=== PATIENT | female | born 1995 | race African-American/Black ===

== ENCOUNTER 2022-05-11 16:16 | Emergency (ER) | payer OTHER ==
[~2022-05-11] VITALS: Ht 167.6 cm; Wt 59.0 kg
--- NOTE | 2022-05-11 17:15 | NUR ---
assume patient care, here for heart palpitation, headache w/ r sided weakness that started at around 1530. noted slight r sided facial droop noted. no slurring of speech. gowned and placed on monitor. vss.
[2022-05-11 17:18] LABS: BASOPHILS % (AUTO) 0.5 % (0.0-2.0); EOSINOPHILS % (AUTO) 2.8 % (0.0-6.0); HEMATOCRIT 37 % (33-45); HEMOGLOBIN 12.5 g/dL (11.5-14.8); LYMPHOCYTES # (AUTO) 2.1 K/uL (0.8-4.8); LYMPHOCYTES % (AUTO) 32.9 % (20.0-44.0); MEAN CORPUSCULAR HGB CONC 34 g/dl (31.0-36.0); MEAN CORPUSCULAR VOLUME 86 fL (82-100); MONOCYTES # (AUTO) 0.6 K/uL (0.1-1.30); MONOCYTES % (AUTO) 8.8 % (2.0-12.0); NEUTROPHILS # (AUTO) 3.5 K/uL (1.8-8.9); PLATELET COUNT (AUTO) 301 K/uL (150-450); RED BLOOD CELL COUNT(AUTO) 4.24 MIL/uL (4.0-5.2); WHITE BLOOD COUNT (AUTO) 6.4 K/uL (4.3-11.0)
--- NOTE | 2022-05-11 17:28 | NUR ---
CODE STROKE CALLED
--- NOTE | 2022-05-11 17:30 | NUR ---
PT TO CT VIA [employer].
[2022-05-11] MEDS ORDERED: IOHEXOL-350 100 ML VIAL IV ONE (17:31)
--- NOTE | 2022-05-11 17:35 | NUR ---
CALLED [facility] [phone] CHAVEZ
[2022-05-11 18:58] LABS: CARBON DIOXIDE 27 mmol/L (21-32); CHLORIDE 105 mmol/L (98-107); CREATININE 0.8 mg/dL (0.6-1.3); GLUCOSE 87 mg/dL (74-106); POTASSIUM 3.6 mmol/L (3.5-5.1); SODIUM SERUM 140 mmol/L (136-145); UREA NITROGEN, BLOOD 7 mg/dL (7-18)
[2022-05-11] MEDS ORDERED: PROCHLORPERAZINE EDISYLATE 10 MG/2 ML VIAL IVP ONE (19:00)
[2022-05-11] MEDS ORDERED: diphenhydrAMINE HCL 50 MG/ML VIAL IV ONE (19:00)
[2022-05-11] MEDS ORDERED: KETOROLAC TROMETHAMINE INJ 30 MG/ML VIAL IV ONE (19:00)
[2022-05-11] MEDS ORDERED: diphenhydrAMINE HCL 50 MG/ML VIAL ONE (19:26)
[2022-05-11] MEDS ORDERED: KETOROLAC TROMETHAMINE 15 MG/ML VIAL ONE (19:26)
[2022-05-11] MEDS ORDERED: ASPIRIN 325 MG TABLET ONE (19:27)
[2022-05-11] MEDS ORDERED: PROCHLORPERAZINE EDISYLATE 10 MG/2 ML VIAL ONE (19:27)
[2022-05-11] MEDS ORDERED: ASPIRIN 325 MG TABLET PO ONE (19:30)
--- NOTE | 2022-05-11 21:08 | NUR ---
Patient discharged to home in stable condition. Written and verbal after care instructions given. Patient verbalizes understanding of instruction.IV removed. Catheter intact and site benign. Pressure and 4x4 applied to site. No bleeding noted. Pt ambulatory with a steady gait
[2022-05-11 21:44] VITALS: BP 124/81
== END 2022-05-11 21:44 | disposition home or self-care (01) ==
LOC: ER 16:21
DX: G43.909 Migraine, unspecified, not intractable, without status migrainosus (principal); R20.0 Anesthesia of skin
CPT/HCPCS: 99285; 70498; 96374; 71045; 96375; 93005; 70496; 85025; 80048; 84703; 36415; 84484; 85730; 82962; 70450; J0780; J1200; Q9967; J1885